=== PATIENT | female | born 1950 | race Two or more races ===

== ENCOUNTER 2024-01-24 19:43 | Inpatient (IN) | payer OTHER ==
[~2024-01-24] VITALS: Ht 170.2 cm; Wt 76.2 kg
[2024-01-24] MEDS ORDERED: ARICEPT5 MG (20:38)
[2024-01-24] MEDS ORDERED: MONTELUKAST SODI4 M1 (20:39)
[2024-01-24] MEDS ORDERED: LANTUS SOL100 UNIT/1 (20:39)
[2024-01-24] MEDS ORDERED: ROSUVASTATIN CA10 MG PO (20:39)
[2024-01-24] MEDS ORDERED: TRAMADOL HCL E100 M1 (20:39)
[2024-01-24] MEDS ORDERED: ENALAPRIL MALE2.5 MG PO (20:40)
[2024-01-24] MEDS ORDERED: XARELTO10 MG (20:40)
[2024-01-24] MEDS ORDERED: CLARITIN10 M1 PO (20:40)
--- NOTE | 2024-01-24 20:46 | NUR ---
PACIENTE ALERTA Y ORIENTADA X3, REFIERE HABERSE REALIZADO LABORATORIOS NICOLA LA MANANA Y SALIR CON PLAQUETAS BAJAS. REFIERE DEBILIDAD GENERAL. SE JOSE S/V Y SE UBICA.
--- NOTE | 2024-01-24 21:36 | NUR ---
SE EDUCA A PTE SOBRE TX MEDICO ESTA REFIERE ENTENDER, SE JOSE MUESTRAS DE LABORATORIO UTILIZANDO MEDIDAS ASEPTICAS. SE COLOCA H/L MAXIMO DE EDEMA. SE REQUIZAN 20 UNIDADES DE PLAQUETAS JADEN ORDEN MEDICA. PTE FIRMA AUTORIZACION DE TRANSFUSION. PTE SE CONTINUA MONITORIANDO POR CAMBIOS.
[2024-01-24 22:19] LABS: URINE APPEARANCE Clear; URINE BILIRRUBIN Negative (NEGATIVE); URINE BLOOD Negative; URINE COLOR Yellow; URINE GLUCOSE Negative (NEGATIVE); URINE LEUKOCYTE Negative; URINE NITRATE Negative; URINE PROTEIN Negative (NEGATIVE)
[2024-01-24 22:22] LABS: MEAN CORPUSCULAR HGB CONC 35.4 g/dl (32.0-36.0); RED BLOOD COUNT 2.26 M/uL (4.00-6.00)
[2024-01-24 22:24] LABS: URINE BACTERIA 84.3 uL (0.0-1933); URINE EPITHELIAL CELLS 39.4 uL (0.0-38.8); URINE WBC 69.8 uL (0.0-23.2)
[2024-01-24 22:25] LABS: MEAN CORPUSCULAR HEMOGLOBIN 36.2 pg (27.00-32.0)
[2024-01-24 22:26] LABS: HEMOGLOBIN 8.2 g/dL (12.0-15.00); PLATELET COUNT 33 K/uL (150-450)
[2024-01-24 22:30] LABS: PLT IN CITRATE 36 K/uL (150-450); RED CELL DISTRIBUTION WIDTH 16.8 % (11.5-14.5)
[2024-01-24 22:33] LABS: INR 1.13; PROTHROMBIN TIME 11.8 SECONDS (9.0-11.5)
[2024-01-24 22:38] LABS: ALBUMIN 3.2 gm/dL (3.4-5.0); BILIRUBIN TOTAL 0.5 mg/dL (0.3-1.2); CALCIUM 10.3 mg/dL (8.5-10.1); CREATININE SERUM 1.13 mg/dL (0.55-1.02); GFR 46.94; GLOBULINA 4.6 G/DL (2.4-3.5); POTASSIUM 3.99 mEq/L (3.5-5.1); TOTAL PROTEIN 7.8 gm/dL (6.4-8.2)
[2024-01-25] MEDS ORDERED: PANTOPRAZOLE SODIUM 40 MG/VIAL VIAL IV SCH (00:12)
[2024-01-25] MEDS ORDERED: ACETAMINOPHEN 500 MG GEL..CAP PO PRN (00:15)
[2024-01-25] MEDS ORDERED: 0.9 % SODIUM CHLORIDE 1,000 ML IV SCH (00:15)
[2024-01-25] MEDS ORDERED: ONDANSETRON HCL 4 MG in 0.9 % SODIUM CHLORIDE 50 ML IV PRN (00:15)
[2024-01-25] MEDS ORDERED: ENALAPRIL MALEATE 2.5 MG TABLET PO SCH (09:00)
[2024-01-25] MEDS ORDERED: IRON FUM,PS/FOLIC/BCOMP,C NO.9 1 CAP CAPSULE PO SCH (09:00)
[2024-01-25] MEDS ORDERED: PHENOL 177 ML BOTTLE MM SCH (14:00)
[2024-01-25] MEDS ORDERED: GUAIFENESIN 100 MG/5 ML BLIST.PACK PO SCH (14:00)
[2024-01-25] MEDS ORDERED: MONTELUKAST SODIUM 10 MG TABLET PO SCH (17:00)
[2024-01-25] MEDS ORDERED: DONEPEZIL HCL 5 MG TABLET PO SCH (17:00)
[2024-01-25] MEDS ORDERED: CRESTOR 5 MG PO SCH (17:00)
[2024-01-25] MEDS ORDERED: INSULIN GLARGINE,HUM.REC.ANLOG 1,000 UNITS/10 ML UNITS SUBCUTANEO SCH (21:00)
[2024-01-26 06:59] LABS: HEMATOCRIT 28.1 % (36.0-45.00); MEAN CELL VOLUME 98.9 fL (80.00-100.00); MEAN CORPUSCULAR HGB CONC 35.5 g/dl (32.0-36.0); RED BLOOD COUNT 2.84 M/uL (4.00-6.00); RED CELL DISTRIBUTION WIDTH 19.5 % (11.5-14.5)
[2024-01-26 07:02] LABS: MEAN CORPUSCULAR HEMOGLOBIN 35.2 pg (27.00-32.0)
[2024-01-26 07:03] LABS: PLATELET COUNT 75 K/uL (150-450)
[2024-01-26] MEDS ORDERED: LORATADINE 10 MG TABLET PO SCH (09:00)
[2024-01-26] MEDS ORDERED: TRAMADOL HCL 50 MG TABLET PO SCH (09:00)
== END 2024-01-26 14:30 | disposition home or self-care (01) | DRG 813 ==
LOC: ER 19:44 → SEC-K 01-25 00:15
PROVIDERS: General Practice; Internal Medicine Hematology & Oncology; ADMIT Internal Medicine; ATTEND Internal Medicine
PROC: 30233N1 Transfusion of Nonautologous Red Blood Cells into Peripheral Vein, Percutaneous Approach (ICD-10-PCS; principal; 2024-01-25)
DX: D69.6 Thrombocytopenia, unspecified (principal); N17.9 Acute kidney failure, unspecified; C56.9 Malignant neoplasm of unspecified ovary; Z20.822 Contact with and (suspected) exposure to COVID-19

== ENCOUNTER 2024-03-01 19:58 | Inpatient (IN) | payer OTHER ==
[~2024-03-01] VITALS: Ht 170.2 cm; Wt 76.7 kg
[~2024-03-01 19:58] MED LIST: ARICEPT5 MG; CLARITIN10 M1 PO; ENALAPRIL MALE2.5 MG PO; LANTUS SOL100 UNIT/1; MONTELUKAST SODI4 M1; ROSUVASTATIN CA10 MG PO; TRAMADOL HCL E100 M1; XARELTO10 MG
--- NOTE | 2024-03-01 20:05 | NUR ---
PACIENTE ALERTA Y ORIENTADA X 3. REFIERE 2 SEMANAS ACUMULANDO LIQUIDO EN EL ABDOMEN QUE REFIERE LE SACARIA MANANA. ESTA INDICA DOLOR ABDOMINAL, NAUSEAS, VOMITOS X 1 Y FATIGA. (REFIERE LE REALIZARIAN CHARITY PARACENTESIS)
[2024-03-01] MEDS ORDERED: HUMALOG100 UNIT/1 (20:08)
[2024-03-01] MEDS ORDERED: FUROsemide 40 MG/4 ML VIAL ONE (20:40)
[2024-03-01] MEDS ORDERED: FUROsemide 40 MG/4 ML VIAL IV ONE (20:45)
--- NOTE | 2024-03-01 20:49 | NUR ---
PTE ES EVALUADA POR EL DR. LAROSE. RN T BURROUGHS ORIENTA SOBRE TRATMIENTO, CANALIZA, KAUSHAL MUESTRA DE LAB Y ADMINISTRA MEDICAMENTO JADEN ORDEN MEDICA BAJO MEDIDAS ASEPTICAS. SE NOTIFICA XRAY PENDIENTE. PTE REHUSA LEA Y SE LE NOTIFICA A DR. LAROSE.
[2024-03-01 21:40] LABS: HEMATOCRIT 31.5 % (36.0-45.00); HEMOGLOBIN 10.9 g/dL (12.0-15.00); MEAN CELL VOLUME 97.8 fL (80.00-100.00); MEAN CORPUSCULAR HEMOGLOBIN 33.7 pg (27.00-32.0); MEAN CORPUSCULAR HGB CONC 34.5 g/dl (32.0-36.0); PLATELET COUNT 91 K/uL (150-450); RED BLOOD COUNT 3.23 M/uL (4.00-6.00); RED CELL DISTRIBUTION WIDTH 18.9 % (11.5-14.5)
[2024-03-01 21:48] LABS: URINE BACTERIA 175.1 uL (0.0-1933); URINE CAST 15.87 uL (0.0-1.40); URINE EPITHELIAL CELLS 87.6 uL (0.0-38.8); URINE RBC 5.6 uL (0.0-20.8); URINE WBC 167.5 uL (0.0-23.2)
[2024-03-01 21:50] LABS: URINE APPEARANCE CLEAR; URINE COLOR YELLOW; URINE GLUCOSE NEGATIVE (NEGATIVE)
[2024-03-01 21:51] LABS: URINE BILIRRUBIN NEGATIVE (NEGATIVE); URINE BLOOD NEGATIVE; URINE KETONE NEGATIVE (NEGATIVE)
[2024-03-01 21:52] LABS: URINE LEUKOCYTE NEGATIVE; URINE NITRATE NEGATIVE; URINE PROTEIN 100 (NEGATIVE); URINE UROBILINOGEN 0.2 E.U./dl
[2024-03-01 21:55] LABS: INR 1.13; PARTIAL THROMBOPLASTIN TIME 28.5 SECONDS (22.0-34.0); PROTHROMBIN TIME 11.8 SECONDS (9.0-11.5)
[2024-03-01 22:00] LABS: URINE MUCUS SCANT
[2024-03-01 22:04] LABS: ALBUMIN 2.9 gm/dL (3.4-5.0); BILIRUBIN TOTAL 0.58 mg/dL (0.3-1.2); BILIRUBIN,CONJUGATED 0.19 mg/dL (0.0-0.2); BILIRUBIN,UNCONJUGATED 0.39 mg/dL (0.0-0.6); CALCIUM 10.4 mg/dL (8.5-10.1); CREATININE SERUM 1.12 mg/dL (0.55-1.02); GFR 47.42; GLOBULINA 4.2 G/DL (2.4-3.5); POTASSIUM 4.39 mEq/L (3.5-5.1); TOTAL PROTEIN 7.1 gm/dL (6.4-8.2)
[2024-03-01] MEDS ORDERED: PANTOPRAZOLE SODIUM 40 MG/VIAL VIAL IV SCH (22:15)
[2024-03-01] MEDS ORDERED: DEXTROSE 50 % IN WATER 0.5 G/ML DISP.SYRIN IV PRN (22:30)
[2024-03-01] MEDS ORDERED: INSULIN LISPRO 1,000 UNIT/10 ML UNITS SUBCUTANEO PRN (22:30)
[2024-03-02] MEDS ORDERED: ENALAPRIL MALEATE 2.5 MG TABLET PO SCH (09:00)
[2024-03-02] MEDS ORDERED: MONTELUKAST SODIUM 10 MG TABLET PO SCH (09:00)
[2024-03-02] MEDS ORDERED: ENOXAPARIN SODIUM 40 MG/0.4 ML SYRINGE SUBCUTANEO SCH (09:00)
[2024-03-02] MEDS ORDERED: FUROsemide 20 MG/2 ML VIAL IV SCH (09:00)
[2024-03-02] MEDS ORDERED: LORATADINE 10 MG TABLET PO SCH (09:00)
[2024-03-02] MEDS ORDERED: DONEPEZIL HCL 5 MG TABLET PO SCH (17:00)
[2024-03-02] MEDS ORDERED: ALBUMIN HUMAN-25 0.25GM/ML (50ML) VIAL IV SCH (21:00)
[2024-03-02] MEDS ORDERED: PATIENTS OWN MEDICATION (MEDICAMENTO EN PISO) PO SCH (21:00)
[2024-03-02] MEDS ORDERED: TRAMADOL HCL 50 MG TABLET PO SCH (21:45)
== END 2024-03-03 11:30 | disposition home or self-care (01) | DRG 948 ==
LOC: ER 19:59 → MEDI 21:47
PROVIDERS: General Practice; ADMIT Internal Medicine; ATTEND Internal Medicine
PROC: 0W9G3ZZ Drainage of Peritoneal Cavity, Percutaneous Approach (ICD-10-PCS; principal; 2024-03-02)
DX: R18.8 Other ascites (principal); C56.9 Malignant neoplasm of unspecified ovary; E11.9 Type 2 diabetes mellitus without complications; F03.90 Unspecified dementia, unspecified severity, without behavioral disturbance, psychotic disturbance, mood disturbance, and anxiety; Z79.4 Long term (current) use of insulin

== ENCOUNTER 2024-04-21 09:34 | Inpatient (IN) | payer OTHER ==
[~2024-04-21] VITALS: Ht 213.4 cm; Wt 67.1 kg
[~2024-04-21 09:34] MED LIST changes: +HUMALOG100 UNIT/1
[2024-04-21] MEDS ORDERED: XARELTO20 MG (10:12)
[2024-04-21] MEDS ORDERED: FAMOtidine 10 MG/ML (4ML VIAL) IV ONE (11:00)
[2024-04-21] MEDS ORDERED: 0.9 % SODIUM CHLORIDE 1,000 ML IV ONE (11:00)
[2024-04-21 11:45] LABS: HEMATOCRIT 29.3 % (36.0-45.00); HEMOGLOBIN 10.1 g/dL (12.0-15.00); MEAN CELL VOLUME 92.6 fL (80.00-100.00); MEAN CORPUSCULAR HEMOGLOBIN 31.9 pg (27.00-32.0); MEAN CORPUSCULAR HGB CONC 34.4 g/dl (32.0-36.0); PLATELET COUNT 88 K/uL (150-450); RED BLOOD COUNT 3.16 M/uL (4.00-6.00); RED CELL DISTRIBUTION WIDTH 17.6 % (11.5-14.5)
[2024-04-21 12:05] LABS: INR 1.31
[2024-04-21 12:27] LABS: D DIMER 5.31 MG/L; PARTIAL THROMBOPLASTIN TIME 29.3 SECONDS (22.0-34.0)
[2024-04-21 12:54] LABS: ABG PO2 94.2 mmHg (80-100); ABG pCO2 34.3 mmHg (35-45); BASE EXCESS -0.7 mmol/l; BICARBONATE 22.8 mmol/l (23-25); SaO2 97.6 %; Tco2 23.8 mmol/l
[2024-04-21 12:57] LABS: o2 21 %
[2024-04-21 12:58] LABS: allen test SATISFACTORY; puncture site RADIAL RIGHT
[2024-04-21 13:19] LABS: ALBUMIN 2.6 gm/dL (3.4-5.0); BILIRUBIN TOTAL 1.33 mg/dL (0.3-1.2); CALCIUM 11.2 mg/dL (8.5-10.1); CREATININE SERUM 0.95 mg/dL (0.55-1.02); GFR 57.35; GLOBULINA 4.3 G/DL (2.4-3.5); POTASSIUM 3.66 mEq/L (3.5-5.1); TOTAL PROTEIN 6.9 gm/dL (6.4-8.2)
[2024-04-21 13:25] LABS: URINE APPEARANCE Clear; URINE BILIRRUBIN Small (NEGATIVE); URINE BLOOD Negative; URINE COLOR Dark Yellow; URINE GLUCOSE Negative (NEGATIVE); URINE KETONE Negative (NEGATIVE); URINE LEUKOCYTE Negative; URINE NITRATE Negative; URINE PROTEIN Trace (NEGATIVE)
[2024-04-21 13:26] LABS: URINE BACTERIA 125.9 uL (0.0-1933); URINE CAST 4.73 uL (0.0-1.40); URINE RBC 6.4 uL (0.0-20.8); URINE WBC 38.1 uL (0.0-23.2)
[2024-04-21] MEDS ORDERED: 0.9 % SODIUM CHLORIDE 1,000 ML IV SCH (19:30)
[2024-04-21] MEDS ORDERED: IPRATROPIUM BROMIDE 0.5 MG/2.5 ML AMPUL.NEB IH SCH (19:30)
[2024-04-21] MEDS ORDERED: DEXTROSE 50 % IN WATER 0.5 G/ML DISP.SYRIN IV PRN (19:30)
[2024-04-21] MEDS ORDERED: INSULIN LISPRO 1,000 UNIT/10 ML UNITS SUBCUTANEO PRN (19:30)
[2024-04-21] MEDS ORDERED: DONEPEZIL HCL 5 MG TABLET PO SCH (19:37)
[2024-04-21] MEDS ORDERED: TRAMADOL HCL 50 MG TABLET PO SCH (19:38)
[2024-04-21] MEDS ORDERED: CEFTRIAXONE SODIUM 1,000 MG VIAL IV SCH (19:41)
[2024-04-21] MEDS ORDERED: AZITHROMYCIN 500 MG in 0.9 % SODIUM CHLORIDE 250 ML IV SCH (19:41)
[2024-04-21] MEDS ORDERED: METHYLPREDNISOLONE SOD SUCC 40 MG VIAL IV SCH (19:42)
[2024-04-21] MEDS ORDERED: MORPHINE SULFATE 2 MG/ML CARTRIDGE IV PRN (19:45)
[2024-04-21] MEDS ORDERED: ACETAMINOPHEN 500 MG GEL..CAP PO PRN (19:45)
[2024-04-21] MEDS ORDERED: ONDANSETRON HCL 4 MG in DEXTROSE 5 % IN WATER 50 ML IV PRN (19:45)
[2024-04-21] MEDS ORDERED: DIPHENHYDRAMINE HCL 50 MG/ML VIAL 1ML IV PRN (19:45)
[2024-04-21] MEDS ORDERED: BUDESONIDE 0.5 MG/2 ML AMPUL.NEB IH SCH (21:00)
[2024-04-21] MEDS ORDERED: LEVALBUTEROL HCL 1.25 MG/3 ML SOLUTION IH SCH (21:00)
[2024-04-21 21:17] VITALS: BP 140/60
[2024-04-21 21:43] LABS: LDH 274 U/L (84-246); PHOSPHOKINASE CREATININE 40 U/L (26-192)
[2024-04-22] VITALS (9 sets, daily range): BP systolic 123–142; BP diastolic 54–76; O2SAT 90–100
[2024-04-22] MEDS ORDERED: GUAIFEN/DEXTROMETHORPHAN/PE 10 ML BLIST.PACK PO SCH
[2024-04-22 07:43] LABS: ALBUMIN 2.6 gm/dL (3.4-5.0); BILIRUBIN TOTAL 0.71 mg/dL (0.3-1.2); BILIRUBIN,CONJUGATED 0.25 mg/dL (0.0-0.2); BILIRUBIN,UNCONJUGATED 0.46 mg/dL (0.0-0.6); CALCIUM 10.7 mg/dL (8.5-10.1); CREATININE SERUM 0.92 mg/dL (0.55-1.02); GFR 59.51; GLOBULINA 4.1 G/DL (2.4-3.5); POTASSIUM 3.66 mEq/L (3.5-5.1); TOTAL PROTEIN 6.7 gm/dL (6.4-8.2)
[2024-04-22 07:45] LABS: C-REACTIVE PROTEIN 1.6 MG/DL (0.00-0.29)
[2024-04-22 07:53] LABS: LDH 296 U/L (84-246); PHOSPHOKINASE CREATININE 30 U/L (26-192)
[2024-04-22 07:54] LABS: LDH 357 U/L (84-246); PHOSPHOKINASE CREATININE 36 U/L (26-192)
[2024-04-22 07:55] LABS: INR 1.21; PARTIAL THROMBOPLASTIN TIME 29.1 SECONDS (22.0-34.0)
[2024-04-22 08:03] LABS: HEMATOCRIT 30.1 % (36.0-45.00); HEMOGLOBIN 10.3 g/dL (12.0-15.00); MEAN CELL VOLUME 92.2 fL (80.00-100.00); MEAN CORPUSCULAR HEMOGLOBIN 31.5 pg (27.00-32.0); MEAN CORPUSCULAR HGB CONC 34.2 g/dl (32.0-36.0); RED BLOOD COUNT 3.27 M/uL (4.00-6.00); RED CELL DISTRIBUTION WIDTH 17.8 % (11.5-14.5)
[2024-04-22 08:15] LABS: ERYTHROCYTE SEDIMENTATION RATE 53 mm/hr
[2024-04-22 08:16] LABS: PLATELET COUNT 73 K/uL (150-450)
[2024-04-22] MEDS ORDERED: LORATADINE 10 MG TABLET PO SCH (09:00)
[2024-04-22] MEDS ORDERED: RIVAROXABAN 20 MG TABLET PO SCH (09:00)
[2024-04-22] MEDS ORDERED: MONTELUKAST SODIUM 10 MG TABLET PO SCH (09:00)
[2024-04-22] MEDS ORDERED: PATIENTS OWN MEDICATION (MEDICAMENTO EN PISO) PO SCH (09:00)
[2024-04-22] MEDS ORDERED: PANTOPRAZOLE SODIUM 40 MG in 0.9 % SODIUM CHLORIDE 8 ML IV PUSH SCH (09:00)
[2024-04-22] MEDS ORDERED: ENALAPRIL MALEATE 2.5 MG TABLET PO SCH (09:00)
[2024-04-22] MEDS ORDERED: INSULIN GLARGINE,HUM.REC.ANLOG 1,000 UNITS/10 ML UNITS SUBCUTANEO STA (10:35)
[2024-04-22] MEDS ORDERED: INSULIN LISPRO 1,000 UNIT/10 ML UNITS SUBCUTANEO SCH (12:00)
[2024-04-22] MEDS ORDERED: INSULIN GLARGINE,HUM.REC.ANLOG 1,000 UNITS/10 ML UNITS SUBCUTANEO SCH (21:00)
[2024-04-23] VITALS (11 sets, daily range): BP systolic 116–147; BP diastolic 56–73; O2SAT 90–99
[2024-04-23] MEDS ORDERED: INSULIN GLARGINE,HUM.REC.ANLOG 1,000 UNITS/10 ML UNITS SUBCUTANEO SCH (09:00)
[2024-04-23] MEDS ORDERED: TUBERCULIN,PURIF.PROT.DERIV. 10 SKIN.TEST SKIN.TEST ID ONE (13:45)
[2024-04-24] VITALS (8 sets, daily range): BP systolic 135–148; BP diastolic 55–67; O2SAT 95–98
[2024-04-24 09:57] LABS: PH,URINE 5.5 (5.0-8.0); URINE APPEARANCE Clear; URINE BILIRRUBIN Negative (NEGATIVE); URINE BLOOD Negative; URINE COLOR Yellow; URINE KETONE Negative (NEGATIVE); URINE LEUKOCYTE Negative; URINE NITRATE Negative; URINE PROTEIN Negative (NEGATIVE); URINE UROBILINOGEN 0.2 E.U./dl
[2024-04-24 09:58] LABS: URINE BACTERIA 23.9 uL (0.0-1933); URINE EPITHELIAL CELLS 23.7 uL (0.0-38.8); URINE RBC 6.2 uL (0.0-20.8); URINE WBC 13.1 uL (0.0-23.2)
[2024-04-24 10:10] LABS: URINE GLUCOSE 500 MG/DL (NEGATIVE)
[2024-04-24] MEDS ORDERED: SODIUM CHLORIDE FOR INHALATION 1 VIAL.NEB IH SCH (10:17)
[2024-04-25] VITALS (9 sets, daily range): BP systolic 141–147; BP diastolic 60–67; O2SAT 92–100
[2024-04-25 08:10] LABS: HEMATOCRIT 29.1 % (36.0-45.00); HEMOGLOBIN 9.8 g/dL (12.0-15.00); MEAN CELL VOLUME 94.4 fL (80.00-100.00); MEAN CORPUSCULAR HEMOGLOBIN 31.8 pg (27.00-32.0); MEAN CORPUSCULAR HGB CONC 33.7 g/dl (32.0-36.0); RED BLOOD COUNT 3.09 M/uL (4.00-6.00); RED CELL DISTRIBUTION WIDTH 18.1 % (11.5-14.5)
[2024-04-25 08:12] LABS: PLATELET COUNT 76 K/uL (150-450)
[2024-04-25 08:27] LABS: ALBUMIN 2.3 gm/dL (3.4-5.0); BILIRUBIN TOTAL 0.59 mg/dL (0.3-1.2); CALCIUM 10.6 mg/dL (8.5-10.1); CREATININE SERUM 0.53 mg/dL (0.55-1.02); GFR 112.46; GLOBULINA 3.5 G/DL (2.4-3.5); POTASSIUM 3.55 mEq/L (3.5-5.1); TOTAL PROTEIN 5.8 gm/dL (6.4-8.2)
[2024-04-25] MEDS ORDERED: INSULIN LISPRO 1,000 UNIT/10 ML UNITS SUBCUTANEO SCH (12:00)
[2024-04-26 01:00] VITALS: O2SAT 100
[2024-04-26 01:42] VITALS: BP 160/70; O2SAT 97
[2024-04-26 05:00] VITALS: O2SAT 100
[2024-04-26] MEDS ORDERED: INSULIN LISPRO 1,000 UNIT/10 ML UNITS SUBCUTANEO SCH (08:15)
[2024-04-26 09:03] VITALS: BP 139/58; O2SAT 99
[2024-04-26] MEDS ORDERED: TRAMADOL HCL 50 MG TABLET PO SCH (21:00)
== END 2024-04-26 13:48 | disposition home or self-care (01) | DRG 194 ==
LOC: ER 09:36 → MEDJ 20:43
PROVIDERS: General Practice; Internal Medicine; ADMIT Internal Medicine; ATTEND Internal Medicine
PROC: BB24YZZ Computerized Tomography (CT Scan) of Bilateral Lungs using Other Contrast (ICD-10-PCS; 2024-04-21)
PROC: 4A12X4Z Monitoring of Cardiac Electrical Activity, External Approach (ICD-10-PCS; 2024-04-22)
PROC: 3E0F7GC Introduction of Other Therapeutic Substance into Respiratory Tract, Via Natural or Artificial Opening (ICD-10-PCS; principal; 2024-04-25)
PROC: B246ZZZ Ultrasonography of Right and Left Heart (ICD-10-PCS; 2024-04-25)
DX: J18.1 Lobar pneumonia, unspecified organism (principal); C79.60 Secondary malignant neoplasm of unspecified ovary; E83.52 Hypercalcemia; D69.6 Thrombocytopenia, unspecified; E11.65 Type 2 diabetes mellitus with hyperglycemia; I10 Essential (primary) hypertension; Z92.21 Personal history of antineoplastic chemotherapy; Z88.6 Allergy status to analgesic agent; Z88.2 Allergy status to sulfonamides; Z87.891 Personal history of nicotine dependence; Z79.4 Long term (current) use of insulin

== ENCOUNTER 2024-05-15 14:16 | Inpatient (IN) | payer OTHER ==
[~2024-05-15] VITALS: Ht 160 cm; Wt 59.0 kg
[~2024-05-15 14:16] MED LIST changes: +XARELTO20 MG
[2024-05-15] MEDS ORDERED: ONDANSETRON HCL 2 MG/ML VIAL IV ONE (15:15)
[2024-05-15] MEDS ORDERED: FAMOTIDINE/PF 20 MG/2 ML VIAL IV ONE (15:15)
[2024-05-15 17:01] LABS: HEMATOCRIT 33.5 % (36.0-45.00); HEMOGLOBIN 11.4 g/dL (12.0-15.00); MEAN CELL VOLUME 93.6 fL (80.00-100.00); MEAN CORPUSCULAR HEMOGLOBIN 31.9 pg (27.00-32.0); MEAN CORPUSCULAR HGB CONC 34.1 g/dl (32.0-36.0); RED BLOOD COUNT 3.58 M/uL (4.00-6.00); RED CELL DISTRIBUTION WIDTH 20.3 % (11.5-14.5)
[2024-05-15 17:03] LABS: PLATELET COUNT 84 K/uL (150-450)
[2024-05-15 17:09] LABS: INR 1.32; PARTIAL THROMBOPLASTIN TIME 29.6 SECONDS (22.0-34.0); PROTHROMBIN TIME 14.1 SECONDS (9.0-11.5)
[2024-05-15 17:17] LABS: ALBUMIN 2.2 gm/dL (3.4-5.0); BILIRUBIN TOTAL 0.96 mg/dL (0.3-1.2); BILIRUBIN,CONJUGATED 0.4 mg/dL (0.0-0.2); BILIRUBIN,UNCONJUGATED 0.56 mg/dL (0.0-0.6); CALCIUM 9.4 mg/dL (8.5-10.1); CREATININE SERUM 1.1 mg/dL (0.55-1.02); GFR 48.42; GLOBULINA 2.9 G/DL (2.4-3.5); POTASSIUM 3.15 mEq/L (3.5-5.1); TOTAL PROTEIN 5.1 gm/dL (6.4-8.2)
[2024-05-15] MEDS ORDERED: LACTULOSE 20 G/30 ML BLIST.PACK PO ONE (22:45)
[2024-05-15] MEDS ORDERED: MINERAL OIL 30 ML BLIST.PACK PO ONE (23:00)
[2024-05-15] MEDS ORDERED: MAGNESIUM HYDROXIDE 400 MG/5 ML ML PO ONE (23:00)
[2024-05-15] MEDS ORDERED: INSULIN LISPRO 1,000 UNIT/10 ML UNITS SUBCUTANEO PRN (23:45)
[2024-05-15] MEDS ORDERED: DEXTROSE 50 % IN WATER 0.5 G/ML DISP.SYRIN IV PRN (23:45)
[2024-05-15] MEDS ORDERED: POTASSIUM CHLORIDE 20MEQ/100ML H2O PB IV ONE (23:45)
[2024-05-15] MEDS ORDERED: ONDANSETRON HCL 4 MG in 0.9 % SODIUM CHLORIDE 50 ML IV PRN (23:45)
[2024-05-15] MEDS ORDERED: 0.9 % SODIUM CHLORIDE 1,000 ML IV SCH (23:45)
[2024-05-16 02:22] LABS: MAGNESIUM 1.5 mg/dL (1.8-2.4); PHOSPHOROUS 2.7 mg/dL (2.5-4.9)
[2024-05-16 04:50] VITALS: BP 93/53
[2024-05-16] MEDS ORDERED: PANTOPRAZOLE SODIUM 40 MG/VIAL VIAL IV SCH (09:00)
[2024-05-16] MEDS ORDERED: FUROsemide 20 MG/2 ML VIAL IV SCH (09:00)
[2024-05-16 10:07] VITALS: BP 98/64; O2SAT 98
[2024-05-16 14:35] LABS: URINE APPEARANCE Clear; URINE BILIRRUBIN Negative (NEGATIVE); URINE BLOOD Negative; URINE COLOR Yellow; URINE GLUCOSE Negative (NEGATIVE); URINE KETONE Trace (NEGATIVE); URINE LEUKOCYTE Negative; URINE NITRATE Negative; URINE PROTEIN Negative (NEGATIVE); URINE UROBILINOGEN 0.2 E.U./dl
[2024-05-16 14:38] LABS: URINE EPITHELIAL CELLS 6.4 uL (0.0-38.8); URINE WBC 3.3 uL (0.0-23.2)
[2024-05-16 14:42] LABS: URINE RBC 1.8 uL (0.0-20.8)
[2024-05-16] MEDS ORDERED: MAGNESIUM SULFATE IN WATER 50 ML IV NR (15:00)
[2024-05-16] MEDS ORDERED: MORPHINE SULFATE 2 MG/ML SYRINGE IV PRN (15:45)
[2024-05-16] MEDS ORDERED: DOCUSATE CALCIUM 240 MG CAPSULE PO SCH (17:00)
[2024-05-16] MEDS ORDERED: LACTULOSE 20 G/30 ML BLIST.PACK PO SCH (17:00)
[2024-05-16] MEDS ORDERED: POTASSIUM CHLORIDE IN WATER 100 ML IV SCH (17:00)
[2024-05-16] MEDS ORDERED: DONEPEZIL HCL 5 MG TABLET PO SCH (17:00)
[2024-05-16 19:21] VITALS: BP 110/62; O2SAT 96
[2024-05-16 21:40] LABS: TP PERITONEAL FLUID 2.5 g/dl
[2024-05-17 02:16] VITALS: BP 136/55
[2024-05-17 05:14] LABS: CALCIUM 9.2 mg/dL (8.5-10.1); CREATININE SERUM 0.92 mg/dL (0.55-1.02); GFR 59.51
[2024-05-17 09:25] VITALS: BP 119/72; O2SAT 98
== END 2024-05-17 15:21 | disposition home or self-care (01) | DRG 375 ==
LOC: ER 14:16 → MEDJ 23:55
PROVIDERS: General Practice; Nurse Practitioner Family; Radiology Vascular & Interventional Radiology; ADMIT Internal Medicine; ATTEND Internal Medicine
PROC: BW21ZZZ Computerized Tomography (CT Scan) of Abdomen and Pelvis (ICD-10-PCS; 2024-05-15)
PROC: 0W9G3ZZ Drainage of Peritoneal Cavity, Percutaneous Approach (ICD-10-PCS; principal; 2024-05-16)
DX: C78.6 Secondary malignant neoplasm of retroperitoneum and peritoneum (principal); C79.60 Secondary malignant neoplasm of unspecified ovary; R18.8 Other ascites; K59.09 Other constipation; K74.60 Unspecified cirrhosis of liver; E87.6 Hypokalemia; E83.42 Hypomagnesemia; E11.9 Type 2 diabetes mellitus without complications; E78.5 Hyperlipidemia, unspecified; Z92.21 Personal history of antineoplastic chemotherapy; Z79.4 Long term (current) use of insulin